=== PATIENT | female | born 1985 | race Two or more races ===

== ENCOUNTER 2024-10-26 17:19 | Emergency (ER) | payer OTHER ==
[~2024-10-26] VITALS: Ht 162.6 cm; Wt 82.6 kg
[2024-10-26] MEDS ORDERED: ONDANSETRON HCL/PF 4 MG/2 ML VIAL ONE (17:27)
[2024-10-26] MEDS: IV NS 0.9% 1,000 ML BAG IV ONE (17:45)
[2024-10-26] MEDS: ONDANSETRON HCL/PF 4 MG/2 ML VIAL IVP ONE (17:46)
[2024-10-27 03:41] VITALS: BP 90/60; TEMP 98; O2SAT 96
== END 2024-10-27 03:42 | disposition home or self-care (01) ==
LOC: ER 17:21
DX: F10.129 Alcohol abuse with intoxication, unspecified (principal); Y90.8 Blood alcohol level of 240 mg/100 ml or more
CPT/HCPCS: 36415; 82962-TC; 98960; G0480; J2405; J7030